=== PATIENT | female | born 1945 | race Caucasian/White ===

== ENCOUNTER → 2017-05-26 | Outpatient (CLI) | payer OTHER ==
[~2017-05-26] VITALS: Ht 147.3 cm; Wt 35.4 kg
[~2017-05-26] MED LIST: ADVAIR 500-501 EACH INH; ALLEGRA-D 12 H1 EAC2 PO; ALLERGY RELIEF180 MG PO; AUGMENTIN 875875 MG PO; BENADRYL25 MG PO; DICLOFENAC POTA50 MG PO; FLORANEX PACKET1 GM PO; GABAPENTIN 100100 MG PO; MUCINEX TA600 MG/TA2 PO; PROAIR HFA8.5 GM INH; SINGULAIR 10 MG10 M1 PO; TESSALON PERLE100 MG PO; TUMS PO; VITAMIN D1000 UNIT PO
--- NOTE | ~2017-05-26 | HPC ---
[facility] [address] [place] [address] PAIN MANAGEMENT CONSULTATION Name: SANTY BURNHAM Room #: REG [facility]..#: [id number] Admission: 05/26/17 Attend Phys: Ward Pope DO Discharge: Date of : 45 Report #: [id number] THIS REPORT FOR: //name// CC: [place] Pope DATE OF SERVICE: 05/26/2017 CHIEF COMPLAINT: Low back pain, bilateral distal leg pain. HISTORY OF PRESENT ILLNESS: As you know, the patient is a 72-year-old female referred to our service by her primary care physician for evaluation for suspected lumbar radiculopathy. The patient was referred to our service to trial epidural injections under fluoroscopic guidance in hopes of improving pain. She states her pain began in 04/2017. She has had no previous history of back pain and lower extremity symptoms. She indicates that her pain is continuous; describes the pain as burning, shooting, aching, cramping; places current pain score 9/10, daily average at 9/10, worst pain has been is 9/10. The patient states standing, walking exacerbate symptoms; nothing appears to improve pain. The patient recently was started on Neurontin, is having bilateral lower extremity swelling that began soon after initiation of this therapy. She is referred to our service to discuss requested epidural injections. PAST MEDICAL HISTORY: Asthma, allergic rhinitis, benign familial tremors, fibrocystic disease, osteoporosis, hearing loss. PAST SURGICAL HISTORY: Open biopsies of the breast, section x 3, open reduction internal fixation of lower leg fracture, appendectomy, tonsillectomy and tubal ligation. SOCIAL HISTORY: The patient denies tobacco use. Denies IV or illicit drug use. Denies any chronic alcohol use. She is . She is accompanied by her son who is present in room today. She is retired, has been retired for years, not receiving workmen's compensation nor is she trying to obtain disability benefits. Unaccompanied today. REVIEW OF SYSTEMS: Positive for right corrective eyewear, asthma, wheezing, low back pain, bilateral lower extremity pain, bilateral swelling. All other review of systems is negative per 12-point review of systems other than those listed in history of present illness. Pain impact score 36/70 indicating moderate interference of daily activities secondary to pain. [address] [address] PAIN MANAGEMENT CONSULTATION Name: SANTY BURNHAM Room #: REG [facility] Topete#: [id number] Admission: 05/26/17 Attend Phys: Ward Pope DO Discharge: Date of : 45 Report #: [id number] ALLERGIES: CODEINE, DOXYCYCLINE, METRONIDAZOLE. CURRENT MEDICATIONS: Diclofenac 50 mg 3 times a day, cholecalciferol 1000 units per day, calcium carbonate 500 mg twice a day, diphenhydramine 25 mg p.o. at bedtime, Advair 500/50 one puff b.i.d., montelukast sodium 10 mg per day, albuterol 2 puffs q.4h. p.r.n. IMAGING: X-ray lumbar spine obtained 04/30/2017 shows degenerative facet arthritis at L5-S1 with grade 1 spondylolisthesis. PQRS: The patient does have bilateral lower extremity known osteoarthritis. She does report no history of rheumatoid arthritis. She has pain intensity today 9/10. She is not a fall risk, has not had a fall in the past 3 months. She does not use any type of ambulatory device. She is not on blood thinners. She is not treated for hypertension per her report. She is not on opioids and is not under opioid contract. She has a low risk of opioid abuse potential. Her assessment for function secondary to pain involvement 36/70 indicating moderate interference. PHYSICAL EXAMINATION: VITAL SIGNS: Blood pressure 123/89, pulse 91, respiratory rate 12. The patient is 95% on room air. Height 4 feet 10 inches tall, weight 78 pounds, BMI calculated 16.3. GENERAL: A thin, nearly cachectic 72-year-old female appearing her stated age. She is placing pain score today 9/10. HEENT: Normocephalic, atraumatic. Pupils equal, round, reactive to light. Extraocular muscles are intact. Sclerae nonicteric without injection. NEUROLOGIC: Cranial nerves 2-12 grossly intact. Speech is fluent. She is a poor historian. LUNGS: Clear. No wheeze, rhonchi or rales. CARDIOVASCULAR: Regular. No appreciable gallop, no rub. ABDOMEN: Soft, nontender, nondistended, normoactive bowel sounds. EXTREMITIES: Show no clubbing. There is a 2+ nonpitting lower extremity edema. Seated straight leg raising negative. Supine straight leg raising negative. Jai test negative. Modified Gaenslen's is positive for axial low back pain. Ankle clonus negative. Babinski is negative. Deep tendon reflexes are symmetrical, but diminished bilaterally at patella and Achilles. Gait antalgic. ASSESSMENT: 1. Lumbar radicular symptoms. 2. Displacement of lumbar intervertebral disk with radiculopathy. 3. Lumbosacral spondylosis with radiculopathy. 4. Spondylolisthesis of L5 on S1. 5. Chronic intractable pain. PLAN: [address] [address] PAIN MANAGEMENT CONSULTATION Name: SANTY BURNHAM Room #: REG [facility].#: [id number] Admission: 05/26/17 Attend Phys: Ward Pope DO Discharge: Date of : 45 Report #: [id number] 1. Based on today's physical exam and history the patient has provided, the description the patient uses in regards to pain, likely source of the patient's symptoms is lumbar radiculopathy. Given the findings on the x-ray imaging with a spondylolisthesis of L5-S1, there is a strong likelihood the patient is experiencing central canal stenosis. This is confirmed with bilateral nature of the patient's overall pain. We discussed treatment options with the patient today, though we are limited to some degree as we only have x-ray imaging and do not have the definitive study MRI of the lumbar spine. We did discuss in generalities the treatment options for lumbar radicular symptoms secondary to spinal stenosis. These are the treatment options as indicated the patient today. 2. The patient and I discussed physical therapy, stretching exercises, core strengthening with a formalized program initially lasting for about 6 weeks and then, a daily home exercise routine from that point forward. We discussed suggestions and treatment options with medications to be provided to us through her primary care in the form of either neuropathic pain medications or consistent nonsteroidal anti-inflammatories. We discussed the epidural injection for which the patient was referred to our clinic and surgical options. After reviewing the risks and benefits of all proposed treatment options, the patient wished to remain conservative. We did discuss at length the epidural injection and she has refused to entertain the idea of undergoing this procedure. 3. I would recommend that the patient remain on a consistent nonsteroidal anti-inflammatory. It appears the patient is doing well with diclofenac and I would recommend continuing this at least twice to possibly 3 times a day. I did discuss with the patient that this medication has a known cardiovascular risk associated with it and this would need to be discussed with her PCP. We also discussed that there is a potential of long-term kidney issues with nonsteroidal anti-inflammatories. Again, the patient will need to discuss this with her PCP. 4. We made no changes in the patient's medication management. At this point, the patient states that she wishes to discuss further with her PCP. We could certainly provide suggestions to the primary care team for treatment if they request. 5. We wish to thank you for the opportunity to see the patient in consultation. We will be returning her care to your capable hands. We will be available to see the patient back in followup visit if they requested epidural injection is necessary. Again, we wish to thank you for the opportunity to see the patient in consultation. <ELECTRONICALLY SIGNED> By: Ward Pope DO 06/10/17 [id number] Ward Pope DO /nt
[2017-05-26 15:05] VITALS: BP 123/89
== END ==
LOC: PAIN 06:51
DX: M47.26 Other spondylosis with radiculopathy, lumbar region (principal); M51.16 Intervertebral disc disorders with radiculopathy, lumbar region; G89.4 Chronic pain syndrome; M79.604 Pain in right leg; M79.605 Pain in left leg

== ENCOUNTER → 2017-05-29 | Outpatient (CLI) | payer OTHER | LOC: RAD | DX: Z12.31 Encounter for screening mammogram for malignant neoplasm of breast (principal) ==

== ENCOUNTER → 2018-06-02 | Outpatient (CLI) | payer OTHER | LOC: RAD 13:12 | DX: Z12.31 Encounter for screening mammogram for malignant neoplasm of breast (principal) ==

== ENCOUNTER → 2019-06-03 | Outpatient (CLI) | payer OTHER | LOC: RAD 12:32 | DX: Z12.31 Encounter for screening mammogram for malignant neoplasm of breast (principal) ==

== ENCOUNTER → 2020-06-12 | Outpatient (CLI) | payer OTHER | LOC: BC 06-04 12:07 | PROVIDERS: ATTEND Internal Medicine | DX: Z12.31 Encounter for screening mammogram for malignant neoplasm of breast (principal) ==